=== PATIENT | female | born 1990 | race Two or more races ===

== ENCOUNTER 2024-06-26 17:02 | Emergency (ER) | payer OTHER ==
[~2024-06-26] VITALS: Ht 167.6 cm; Wt 108.9 kg
[2024-06-26 17:13] VITALS: BP 112/78; TEMP 98.2
[2024-06-26 17:33] VITALS: O2SAT 97
== END 2024-06-26 17:35 | disposition home or self-care (01) ==
LOC: ER 17:10
DX: J06.9 Acute upper respiratory infection, unspecified (principal); R07.9 Chest pain, unspecified; R19.7 Diarrhea, unspecified; R42 Dizziness and giddiness